=== PATIENT | female | born 1945 | race Caucasian/White ===

== ENCOUNTER 2016-08-23 14:00 | Day surgery (SDC) | payer MEDICARE, OTHER ==
[~2016-08-23] VITALS: Ht 152.4 cm; Wt 54.5 kg
[~2016-08-23 14:00] MED LIST: ASPI-664 PO; LEVO25TA50 PO
[2016-08-23 15:46] VITALS: Ht 152.4 cm; Wt 54.5 kg
[2016-08-23] MEDS ORDERED: PROPOFOL 40 ML ONE (16:22)
--- NOTE | 2016-08-23 17:36 | GILP ---
DATE OF PROCEDURE: 08/23/2016 NAME OF PROCEDURES: 1. Esophagogastroduodenoscopy and biopsy. 2. Colonoscopy. SURGEON: Wiliam Butler MD PREOPERATIVE DIAGNOSES: 1. Abdominal pain. 2. Positive occult blood in stool. 3. The patient never had a screening colonoscopy. POSTOPERATIVE DIAGNOSES 1. Gastritis. 2. Gastric mucosal biopsies were taken for Helicobacter pylori test. 3. Colonoscopy all the way to the cecum. 4. Internal hemorrhoids. 5. No colon neoplasm was identified. INDICATION FOR THE PROCEDURE: Ms. Dayan Arteaga is a 71-year-old female patient who was noted to have positive occult blood in stool. She never had a screening colonoscopy. She also had upper abdomina l pain not responding to therapy. The patient was scheduled for endoscopy and colonoscopy for formerly [facility] evaluation. The procedures and possible complications are well explained to the patient. The patient understood and consented to the procedures. DESCRIPTION OF PROCEDURE: Under the influence of anesthesia, the gastroscope was carefully introduc ed into the esophagus and under direct vision, it was advanced to the stomach and through the pyloru s into the duodenal bulb and descending duodenum. FINDINGS: ESOPHAGUS: The mucosa was normal. STOMACH: The patient had gastritis. Gastric mucosal biopsies were taken for H. pylori test. DUODENUM: Normal. The colonoscope was carefully introduced into the rectum and under direct vision, it was advanced al l the way to the cecum. FINDINGS: The patient had internal hemorrhoids. No colon neoplasm was identified. She tolerated the procedures very well and there was no complication from the procedures. At the en d of the procedures, she was awake with stable vital signs and she was discharged home to the care o f her family. IMPRESSION: 1. Gastritis. 2. Gastric mucosal biopsies were taken for Helicobacter pylori test. 3. Colonoscopy all the way to the cecum. 4. Internal hemorrhoids. 5. No colon neoplasm was identified. PLAN 1. Pantoprazole 40 mg p.o. q.a.m. 2. The patient does not need another screening colonoscopy. Dictated By: WILIAM GONSALEZ/ESTER Conf#: [id number] DID#: [id number]
[2016-08-23 17:53] VITALS: BP 134/70; PULSE 70; RESP 16
--- NOTE | 2016-08-24 17:18 | RADRPT ---
Vent Rate: 54 bpm RR Interval: 0 msec MD Interval: 132 msec QRS Duration: 72 msec QT Interval: 438 msec QTC Interval: 415 msec P-R-T Page: 58 - 55 - 68 degrees Sinus bradycardia with sinus arrhythmia Otherwise normal ECG Electronically Signed By: Lucio Mantilla [id number]
== END 2016-08-23 19:21 | disposition home or self-care (01) ==
LOC: GIL 14:00
PROVIDERS: ATTEND Internal Medicine Gastroenterology
DX: K92.1 Melena (principal); K29.70 Gastritis, unspecified, without bleeding; I10 Essential (primary) hypertension; E11.9 Type 2 diabetes mellitus without complications
CPT/HCPCS: 82962; 87081; 93005